=== PATIENT | female | born 1950 | race Asian ===

== ENCOUNTER 2016-12-06 16:24 | Emergency (ER) | payer OTHER ==
[~2016-12-06] VITALS: Ht 162.6 cm; Wt 58.1 kg
[2016-12-06 16:25] VITALS: BP 180/91; PULSE 74; RESP 18; TEMP 98.2; O2SAT 97
--- NOTE | 2016-12-06 16:25 | NUR ---
BROUGHT IMMEDIATELY BACK TO ER [facility]ALLWAY, TRIAGED. REPORT GIVEN TO NURSE. CHARGE NURSE AWARE OF PTS PLANS AND COMPLAINTS
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
--- NOTE | 2016-12-06 16:55 | NUR ---
RESTING QUIETLY IN ROOM, FAMILY AT BEDSIDE FOR SUPPORT
--- NOTE | 2016-12-06 17:14 | NUR ---
DR RAMESH AT BEDSIDE FOR EVALUATION.
[2016-12-06] MEDS ORDERED: LORazepam 1 MG TABLET PO ONE ×2 (17:15→22:00)
[2016-12-06 17:27] LABS: BASOPHILS % (AUTO) 0.6 % (0.0-2.0); EOSINOPHILS % (AUTO) 0.3 % (0.0-4.0); HEMATOCRIT 38.6 % (36-48); LYMPHOCYTES # (AUTO) 1.8 K/uL (1.0-5.5); LYMPHOCYTES % (AUTO) 29.7 % (20.5-51.5); MEAN CORPUSCULAR HEMOGLOBIN 31 pg (27-31); MEAN CORPUSCULAR HGB CONC 34 % (32-36); MEAN CORPUSCULAR VOLUME 91 fL (79.0-98.0); MONOCYTES # (AUTO) 0.3 K/uL (0.0-1.0); MONOCYTES % (AUTO) 4.5 % (1.7-9.3); NEUTROPHILS % (AUTO) 64.9 % (40.0-70.0); PLATELET COUNT (AUTO) 284 K/uL (130-430); RED BLOOD CELL COUNT(AUTO) 4.24 MIL/uL (4.2-6.2); RED CELL DISTRIBUTION WIDTH 12.7 % (9.0-15.0); WHITE BLOOD COUNT (AUTO) 6.1 K/uL (4.8-10.8)
[2016-12-06 17:45] LABS: ANION GAP 8 (5-15); CALCIUM 9.3 mg/dL (8.4-11.0); CHLORIDE 103 mmol/L (98-107); CREATININE 0.62 mg/dL (0.55-1.30); GFR AFRICAN AMERICAN 125 mL/min (>90); GLUCOSE 108 mg/dL (70-99); POTASSIUM 3.8 mmol/L (3.5-5.1); SODIUM SERUM 141 mmol/L (136-145); UREA NITROGEN, BLOOD 12 mg/dL (8-21)
[2016-12-06] MEDS ORDERED: traMADol HCL HCL 50 MG TABLET (ULTRAM) PO ONE (17:45)
[2016-12-06] MEDS ORDERED: ONDANSETRON 4 MG ODT TAB PO ONE (17:45)
[2016-12-06 17:48] LABS: SALICYLATE 2 mg/dL (3-30)
[2016-12-06 17:50] LABS: INR 0.9 (0.8-1.2); PROTHROMBIN TIME 9.9 SECS (9.5-12.5)
--- NOTE | 2016-12-06 17:51 | NUR ---
Patient refused Tramadol and Zofran. Pt stated that she was not in any pain. Dr. Myers is aware
[2016-12-06 17:56] LABS: ACETAMINOPHEN < 1 ug/mL (1-30); ALCOHOL, BLOOD < 3 mg/dL (<10)
--- NOTE | 2016-12-06 18:20 | NUR ---
RESTING QUIETLY, NO CHANGES
[2016-12-06 18:21] LABS: BILIRUBIN,URINE NEGATIVE (NEGATIVE); BLOOD, URINE 1+ (NEGATIVE); CLARITY/URINE CLEAR (CLEAR); COLOR,URINE YELLOW (YELLOW); GLUCOSE,URINE NEGATIVE (NEGATIVE); KETONES,URINE NEGATIVE (NEGATIVE); LEUKOCYTE ESTERASE ,URINE NEGATIVE (NEGATIVE); NITRITE, URINE NEGATIVE (NEGATIVE); PROTEIN URINE NEGATIVE (NEGATIVE); UROBILINOGEN,URINE 0.2 (0.2-1.0)
[2016-12-06 18:40] LABS: BARBITURATE, URINE NEGATIVE (NEG <=200); BENZODIAZEPINE, URINE NEGATIVE (NEG <=150); CANNABINOID, URINE NEGATIVE (NEG <=50); COCAINE, URINE NEGATIVE (NEG <=150); METHAMPHETAMINES SCREEN,URINE NEGATIVE (NEG <=500); OPIATE, URINE NEGATIVE (NEG <=100); PHENCYCLIDINE SCREEN,URINE NEGATIVE (NEG <=25); UR TRICYCLIC ANTIDEPRESSANTS NEGATIVE (NEG <=300); URINE AMPHETAMINE NEGATIVE (NEG <=500); URINE METHADONE NEGATIVE (NEG <=200); URINE OXYCODONE SCREEN NEGATIVE (NEG <=100); URINE PROPOXYPHENE SCREEN NEGATIVE (NEG <=300)
[2016-12-06 19:02] LABS: BACTERIA,URINE FEW /HPF (None Seen); MUCUS,URINE None Seen /LPF (None Seen); WBC,URINE 0-3 /HPF (0-3)
--- NOTE | 2016-12-06 19:05 | NUR ---
REPORT GIVEN TO GABBIE TO ASSUME CARE
--- NOTE | 2016-12-06 19:35 | NUR ---
Security at bedside wanding pt. Pt's cross pendant necklace and activity watch given to pt's family at bedside.
--- NOTE | 2016-12-06 21:44 | NUR ---
Patient resting comfortably at this time. No acute distress or SOB noted. Denies having suicidal thoughts, no behavior manifested. Will continue to monitor.
--- NOTE | 2016-12-07 01:14 | NUR ---
Patent in no acute distress at this time. All needs met. Made comfortable. Patient calm but per patient, she is having thoughts of hurting herself, did not say how. Will continue to monitor.
--- NOTE | 2016-12-07 04:55 | NUR ---
Patient awake, went to the restroom to urinate. No acute distress or SOB noted at this time. Denies having any thoughts of hurting self or others. Vital signs stable. Will continue to monitor.
--- NOTE | 2016-12-07 07:10 | NUR ---
Assumed care,pt sleeping easily arousable no acute distress noted at this time.
--- NOTE | 2016-12-07 08:41 | NUR ---
Pt awake,no acute distress noted. Safety tray ordered for breakfast.
--- NOTE | 2016-12-07 08:47 | NUR ---
Received call from CHARLOTTE from [facility] stating that the PET team will be leaving soon for this patient's evaluation. If facility needs to contact the PET team, the phone number is [phone]
--- NOTE | 2016-12-07 09:29 | NUR ---
Note undone in EDM - 12/07/16 at 1005 by ZORAN Patient to be transferred to [facility]. Is being transferred due to higher level of care. Receiving facility has accepting physician and available space. ER physician has signed transfer form. Patient or responsible alliance party has agreed to transfer and signed form. Patient belongings inventoried and will be sent with patient. Copy of nursing notes, lab reports, EKG, Physicians Orders and X-rays to be sent with patient. Report called to Rojelio at receiving facility. Receiving physician is Tanesha. [facility] ambulance service has been called for transfer by [facility] .
[2016-12-07] MEDS ORDERED: ALPRAZolam 0.25 MG TABLET PO ONE (09:30)
--- NOTE | 2016-12-07 09:30 | NUR ---
PET team at bedside for evaluation.
--- NOTE | 2016-12-07 10:03 | NUR ---
pT MEDICATED TOLERATED WELL.
--- NOTE | 2016-12-07 11:00 | NUR ---
PT SLEEPING. VSS.
--- NOTE | 2016-12-07 12:00 | NUR ---
Patient to be transferred to [facility]. Is being transferred due to higher level of care. Receiving facility has accepting physician and available space. ER physician has signed transfer form. Patient or responsible green party has agreed to transfer and signed form. Patient belongings inventoried and will be sent with patient. Copy of nursing notes, lab reports, EKG, Physicians Orders and X-rays to be sent with patient. Report called to DB at receiving facility. Receiving physician is SHAAN. [facility] ambulance service has been called for transfer. ETA is 1 HR.
[2016-12-07 12:50] VITALS: BP 122/70; PULSE 76; RESP 18; TEMP 98.2; O2SAT 99
== END 2016-12-07 12:50 ==
LOC: SED 16:24
DX: R45.851 Suicidal ideations (principal); R07.9 Chest pain, unspecified; R51 Headache; F32.9 Major depressive disorder, single episode, unspecified
CPT/HCPCS: 36415; 70450; 80048; 80307; 81000; 84484; 85025; 85610; 85730; 93005; 99285; G0480; G0481; G0482; Q0162

== ENCOUNTER 2016-12-28 17:03 | Emergency (ER) | payer OTHER ==
[~2016-12-28] VITALS: Ht 162.6 cm; Wt 59.0 kg
[2016-12-28 17:07] VITALS: BP 159/83; PULSE 72; RESP 16; TEMP 98.4; O2SAT 97
--- NOTE | 2016-12-28 17:16 | NUR ---
Patient to ER bed 8 to gown for evaluation. Side rails up. Report given to Dileep CHAPMAN.
--- NOTE | 2016-12-28 17:17 | NUR ---
SHANTELL Spence [employer] at bedside examining patient.
--- NOTE | 2016-12-28 17:18 | NUR ---
Pt here for c/o swollen ankle and pain 5/10 for 8 days after missed step at home. Pt states she last took motrin yesterday, has been icing area, but no improvement per pt. Right ankle is swollen, no redness noted.
--- NOTE | 2016-12-28 17:29 | NUR ---
Xray at bedside.
[2016-12-28] MEDS ORDERED: ACETAMINOPHEN 500 MG TABLET PO ONE (17:30)
--- NOTE | 2016-12-28 18:30 | NUR ---
Pt given splint by office machine technician per MD order. Pt tolerated well.
[2016-12-28 18:40] VITALS: BP 145/80; PULSE 70; RESP 17; TEMP 98.6; O2SAT 98
--- NOTE | 2016-12-28 18:40 | NUR ---
Patient given written and verbal discharge instructions and verbalizes understanding. ER MD discussed with patient the results and treatment provided. Patient in stable condition. ID arm band removed. Rx of Tylenol given. Opportunity for questions provided and answered.
== END 2016-12-28 18:40 | disposition home or self-care (01) ==
LOC: SED 17:03
DX: S93.491A Sprain of other ligament of right ankle, initial encounter (principal); R03.0 Elevated blood-pressure reading, without diagnosis of hypertension; Z90.710 Acquired absence of both cervix and uterus; X50.1XXA Overexertion from prolonged static or awkward postures, initial encounter; Y93.01 Activity, walking, marching and hiking; Y99.8 Other external cause status; Y92.89 Other specified places as the place of occurrence of the external cause
CPT/HCPCS: 99284